=== PATIENT | female | born 1965 | race Asian ===

== ENCOUNTER 2019-12-24 20:22 | Emergency (ER) | payer BC ==
[~2019-12-24] VITALS: Ht 170.2 cm; Wt 61.7 kg
[2019-12-24 20:28] VITALS: Ht 170.2 cm; Wt 61.7 kg
[2019-12-24 21:20] VITALS: BP 109/73
== END 2019-12-24 21:20 | disposition home or self-care (01) ==
LOC: ED 20:22
DX: R20.2 Paresthesia of skin (principal)